=== PATIENT | female | born 1940 | race Caucasian/White ===

== ENCOUNTER → 2018-02-07 | Outpatient (CLI) | payer OTHER ==
[~2018-02-07] MED LIST: FOSAMAX 70 MG T70 MG
== END ==
LOC: M.LAB 02:36
DX: Z01.812 Encounter for preprocedural laboratory examination (principal); Z79.899 Other long term (current) drug therapy

== ENCOUNTER → 2019-05-01 | Outpatient (CLI) | payer OTHER ==
--- NOTE | 2019-05-01 17:05 | CARDNUC ---
[place] [address] CARDIAC NUCLEAR IMAGING REPORT Name: ETHEL WILL Room: [facility]#: [id number] Admission: 05/01/19 Attend Phys: Emmanuel Woodward, Discharge: Date of : 38 Date of Service: 05/01/19 1705 Report #: [id number] THIS REPORT FOR: //name// APPROVED REPORT Study performed: 05/01/2019 12:30:00 Indication: Chest pain, Dyspnea. Patient Location: Out-Patient Stress Tech: Rhona Hardin Stress Nurse: Macrina Swan RN Ht: 5 ft 2 in Wt: 102 lbs BSA: 1.44 m2 BMI: 18.65 Medical History Medical History: Angina, CAD non obstructive, CKD, COPD, Current Smoker, HTN, Hyperlipidemia, PVD, SOB, Aortic Atherosclerosis. Medications: ASA 81 mg, Losartan, Atorvastatin. Allergies: Tree pollen/extract. Cardiac Risk Factors: Age, Current Smoker, FHX of CAD, HTN, Hyperlipidemia, SOB, PVD, CKD, Aortic Atherosclerosis. Previous Cardiac Procedures: None Pretest Chest Pain Characteristics: No chest pain Exercise History: Indeterminate Physical Disabilities: COPD, Unstable gait. Meds Held (24 hrs): None Resting Data Rest SPECT myocardial perfusion imaging was performed in supine position 30 minutes following the intravenous injection of 10.8 mCi of Tc-99m Sestamibi. Time of rest injection: 12:55 The images were gated to evaluate regional wall motion and calculate left ventricular ejection fraction. Administration Route: IV Administration Site: Right Arm Pharmacologic Stress Pharmacologic stress test was performed by injecting Regadenoson 0.4 mg IV push over 10-15 seconds immediately followed by the intravenous injection of 35.6 mCi of Tc-99m Sestamibi. Time of stress injection: 14:25 Administration Route: [place] [address] CARDIAC NUCLEAR IMAGING REPORT Name: ETHEL WILL Room: [facility]#: [id number] Admission: 05/01/19 Attend Phys: Emmanuel Woodward, Discharge: Date of : 38 Date of Service: 05/01/19 1705 Report #: [id number] Administration Site: Right Arm Heart Rate at time of stress injection: 97 bpm. Gated Stress SPECT was performed 40 minutes after stress injection. The images were gated to evaluate regional wall motion and calculate left ventricular ejection fraction. Prone imaging was performed. Stress Test Details Stress Test: Pharmacologic stress testing performed using 0.4 mg of regadenoson per 5 mL given IV over 10 seconds. Reason for pharmacologic stress test: physical limitation, COPD, unstable gait.. HR Max Heart Rate (APMHR): 140 bpm Resting HR: 68 bpm Target HR (85% APMHR): 119 bpm Max HR Achieved: 97 bpm % of APMHR: 69 Recovery HR: 89 bpm BP Resting BP: 179/87 mmHg Max BP: 157/79 mmHg Recovery BP: 160/78 mmHg ECG Resting ECG: Sinus Rhythm Stress ECG: Sinus Rhythm ST Change: None Arrhythmia: None Recovery ECG: Sinus Rhythm Recovery ST Change: None Recovery Arrhythmia: None Clinical Reason for Termination: Completed protocol Stress Symptoms: SOA Exercise duration: 0 min 00 sec Exercise capacity: 1.00 METs The patient tolerated Lexiscan infusion without significant cardiac symptoms. Nurse Comments 79 year old female presented with recent HX of CP and SOA. Patient tolerated sitting Lexiscan well. Recovery unremarkable with PO caffeine, effective. Patient escorted by staff to Nuclear Medicine for images. Patient was stable with [place] [address] CARDIAC NUCLEAR IMAGING REPORT Name: ETHEL WILL Room: [facility]#: [id number] Admission: 05/01/19 Attend Phys: Emmanuel Woodward, Discharge: Date of : 38 Date of Service: 05/01/19 1705 Report #: [id number] time. Stress ECG Conclusion The baseline 12-lead EKG showed sinus rhythm without significant ST segment abnormality. EKGs obtained during and post Lexiscan infusion show sinus rhythm with no significant ST or T wave changes. No stress-induced arrhythmias. Study Quality Study: Good Artifact: No artifact Study Data At rest, the left ventricular ejection fraction was 71%.. Post stress, the left ventricular ejection was 64%.. TID = 1.06. Perfusion Normal left ventricular perfusion. Wall Motion Normal left ventricular wall motion. Nuclear Conclusion ECG Findings: negative for ischemia Clinical Findings: negative for ischemia Nuclear Findings: negative for ischemia Exercise Capacity: not assessed Left Ventricular Function: normal Risk Study: low Myocardial perfusion images show no defect to suggest infarct or ischemia. Left ventricular systolic function appears normal on gated studies. This is a low risk study. <Conclusion> The baseline 12-lead EKG showed sinus rhythm without significant ST segment abnormality. EKGs obtained during and post Lexiscan infusion show sinus rhythm with no significant ST or T wave changes. No stress-induced arrhythmias. <ELECTRONICALLY SIGNED> By: Emmanuel Woodward MD, FACC 05/01/19 1705 04 04 Emmanuel Woodward MD, FACC /INF
== END ==
LOC: M.NUC 04-26 16:04
DX: R07.9 Chest pain, unspecified (principal); R06.00 Dyspnea, unspecified; J44.9 Chronic obstructive pulmonary disease, unspecified; I12.9 Hypertensive chronic kidney disease with stage 1 through stage 4 chronic kidney disease, or unspecified chronic kidney disease; N18.9 Chronic kidney disease, unspecified; I25.10 Atherosclerotic heart disease of native coronary artery without angina pectoris; I70.0 Atherosclerosis of aorta; E78.5 Hyperlipidemia, unspecified; F17.200 Nicotine dependence, unspecified, uncomplicated